=== PATIENT | male | born 1965 | race Caucasian/White ===

== ENCOUNTER 2020-05-12 12:24 | Inpatient (IN) ==
[2020-05-12] MEDS ORDERED: NS 0.9% 1000 ml BAG 1,000 ML IV ONE (12:46)
[2020-05-12 13:01] LABS: ABS Basophils 0.1 10^3/ul (0-0.2); ABS Eosinophils 0.2 10^3/ul (0-0.6); ABS Lymphocytes 1.7 10^3/ul (1.0-4.8); ABS Monocytes 0.5 10^3/ul (0-0.8); ABS Neutrophils 5.5 10^3/ul (1.5-7.7); Eosinophil % 1.9 %; Hematocrit 44 % (42-52); Hemoglobin 15.7 g/dL (14.0-18.0); Lymphocyte % 21.2 %; Mean Corpuscular HGB Conc 36 g/dL (31-36); Mean Corpuscular Hemoglobin 30 pg (27-31); Mean Corpuscular Volume 85 fL (80-94); Nucleated Red Blood Cells % 0.2; Platelet Count 184 10^3/uL (150-450); Red Blood Count 5.16 10^6 /uL (4.18-5.48); Red Cell Distribution Width 13 % (10-15); White Blood Count 7.9 10^3/uL (3.5-10.8)
[2020-05-12] MEDS ORDERED: Heparin - STEMI 5,000 UNITS/ML 1 ml VIAL IV ONE (13:07)
[2020-05-12 13:14] LABS: Activated Partial Thrombo Time 24.8 seconds (26.0-38.0); INR 1.08 (0.82-1.09)
[2020-05-12 13:19] LABS: ALT 25 U/L (7-52); AST 18 U/L (13-39); Albumin 4.2 g/dL (3.2-5.2); Albumin/Globulin Ratio 1.4 (1-3); Alkaline Phosphatase 74 U/L (34-104); Anion Gap 6 mmol/L (2-11); BUN/Creatinine Ratio 12.4 (8-20); Blood Urea Nitrogen 13 mg/dL (6-24); CO2 Carbon Dioxide 30 mmol/L (22-32); Calcium 9.5 mg/dL (8.6-10.3); Chloride 102 mmol/L (101-111); EGFR African American 88.7 (>60); EGFR Non-African American 73.3 (>60); Glucose 142 mg/dL (70-100); Potassium 3.8 mmol/L (3.5-5.0); Sodium 138 mmol/L (135-145); Total Protein 7.2 g/dL (6.4-8.9)
[2020-05-12 13:29] LABS: Troponin I 0.44 ng/mL (<0.03)
[2020-05-12] MEDS ORDERED: nitroGLYCERIN DRIP 25,000 MCG/250 ML BTL ONE ×2 (13:41→14:06)
[2020-05-12] MEDS ORDERED: Metoprolol Tartrate 5 mg VIAL 5 ml VIAL (1 mg/ml) IV ONE ×2 (13:43→14:04)
[2020-05-12] MEDS ORDERED: Metoprolol Tartrate 5 mg VIAL 5 ml VIAL (1 mg/ml) ONE (13:43)
[2020-05-12] MEDS ORDERED: nitroGLYCERIN DRIP 25,000 MCG/250 ML BTL IV SCH (14:00)
[2020-05-12] MEDS ORDERED: Heparin 1,000 UNIT/ML 10 ml (10,000 UNITS) CATHLAB/DIALYSIS ONE (14:05)
[2020-05-12] MEDS ORDERED: VERAPAMIL 2.5 MG/ML 2 ML VIAL ** 5 mg/2 ml ONE (14:05)
[2020-05-12] MEDS ORDERED: Midazolam 5 mg/5 ml VIAL 1 mg/ml 5 ml VIAL (5 mg) ONE (14:05)
[2020-05-12] MEDS ORDERED: fentaNYL 100 mcg/2 ml 50 MCG/ML VIAL ONE (14:05)
[2020-05-12] MEDS ORDERED: diPHENhydraMINE IV 50 MG/ML 1 ml VIAL (BENADRYL) ONE (14:06)
[2020-05-12] MEDS ORDERED: Heparin 2 UNITS/ML 1000 mls 2,000 ML IV ONE (14:06)
[2020-05-12] MEDS ORDERED: Iohexol 350 (CONTRAST) 200 ML MDV IV ONE (14:06)
[2020-05-12] MEDS ORDERED: Lidocaine 1% VIAL 10 MG/ML VIAL ONE (14:06)
[2020-05-12] MEDS ORDERED: HYDROmorphone 1 MG/1 ML SYRINGE ONE (14:46)
[2020-05-12] MEDS ORDERED: Bivalirudin 250 MG VIAL ONE ×2 (15:01→15:16)
[2020-05-12] MEDS ORDERED: Atropine 0.1 MG/ML 10 ml SYR (1 mg) ONE (15:13)
[2020-05-12] MEDS ORDERED: Adenosine 3 MG/ML 2 ml VIAL (6 mg) ONE (15:13)
[2020-05-12] MEDS ORDERED: Phenylephrine IV 10 MG/ML 1 ml VIAL ONE (15:25)
[2020-05-12] MEDS ORDERED: NS 0.9% 1000 ml BAG 1,000 ML IV SCH (16:15)
[2020-05-12] MEDS ORDERED: NORMOSOL-R pH 7.4 1000 mL BAG 1,000 ML IV SCH (17:00)
[2020-05-13 04:12] LABS: Hematocrit 40 % (42-52); Hemoglobin 13.9 g/dL (14.0-18.0); Mean Corpuscular HGB Conc 35 g/dL (31-36); Mean Corpuscular Hemoglobin 30 pg (27-31); Mean Corpuscular Volume 86 fL (80-94); Mean Platelet Volume 7.2 fL (7.4-10.4); Platelet Count 194 10^3/uL (150-450); Red Cell Distribution Width 13 % (10-15); White Blood Count 10.7 10^3/uL (3.5-10.8)
[2020-05-13 04:28] LABS: Anion Gap 4 mmol/L (2-11); BUN/Creatinine Ratio 11.1 (8-20); Blood Urea Nitrogen 11 mg/dL (6-24); CO2 Carbon Dioxide 25 mmol/L (22-32); Calcium 9.2 mg/dL (8.6-10.3); Chloride 108 mmol/L (101-111); Cholesterol 158 mg/dL; EGFR Non-African American 78.5 (>60); Glucose 132 mg/dL (70-100); HDL Cholesterol 24.4 mg/dL; LDL Cholesterol 92 mg/dL; Potassium 4.2 mmol/L (3.5-5.0); Sodium 137 mmol/L (135-145); Triglycerides 210 mg/dL
[2020-05-13 08:11] LABS: Magnesium 2.1 mg/dL (1.9-2.7); Phosphorus 3.2 mg/dL (2.5-5.0)
[2020-05-13] MEDS: Aspirin EC 81 mg TAB.EC (enteric coated) PO SCH (08:39)
[2020-05-13] MEDS ORDERED: Albuterol 2.5mg/3 ml (0.083%) NEB.SOLN INH PRN (08:53)
[2020-05-13] MEDS ORDERED: Perflutren Lipid Microsphere 3 ML VIAL ONE (10:03)
[2020-05-14 06:35] LABS: Anion Gap 4 mmol/L (2-11); BUN/Creatinine Ratio 12.9 (8-20); Blood Urea Nitrogen 13 mg/dL (6-24); CO2 Carbon Dioxide 25 mmol/L (22-32); Calcium 9.1 mg/dL (8.6-10.3); Chloride 109 mmol/L (101-111); EGFR African American 92.8 (>60); EGFR Non-African American 76.7 (>60); Glucose 130 mg/dL (70-100); Potassium 4.2 mmol/L (3.5-5.0); Sodium 138 mmol/L (135-145)
[2020-05-14 06:40] LABS: Troponin I 7.99 ng/mL (<0.03)
[2020-05-14 08:30] VITALS: BP 118/64
[2020-05-14] MEDS: Aspirin EC 81 mg TAB.EC (enteric coated) PO SCH (08:47)
== END 2020-05-14 11:35 | disposition home or self-care (01) | DRG 174 ==
LOC: ED 12:24 → CHICATH 14:20 → ICU 16:24 → MEDTELE 05-13 11:55
PROVIDERS: ADMIT Internal Medicine; ATTEND Internal Medicine